=== PATIENT | male | born 1960 | race Two or more races ===

== ENCOUNTER 2020-02-10 09:33 | Inpatient (IN) | payer OTHER ==
[~2020-02-10] VITALS: Ht 172.7 cm; Wt 68.1 kg
[2020-02-10 10:07] LABS: Eosinophils # (auto) 0.1 10 ^3/uL (0-0.8); Lymphocytes # (auto) 2.7 10 ^3/uL (0.4-5.4); Monocytes # (auto) 0.3 10 ^3/uL (0-1.3); Neutrophils # (auto) 9.2 10 ^3/uL (1.6-8.6); Red Cell Distribution Width 13.5 % (11.8-14.3)
[2020-02-10 10:09] LABS: Basophils # (auto) 0 10 ^3/uL (0-0.2); Basophils % (auto) 0.3 % (0.0-2.0); Mean Corpuscular Hemoglobin 33.4 pg (28.0-32.0); Mean Corpuscular Hgb Conc. 35.2 g/dL (32.0-36.0); Mean Corpuscular Volume 94.9 fL (80.0-100.0); Monocytes % (auto) 2.3 % (0.0-12.0); Neutrophils % (auto) 74.4 % (37.0-80.0); Nucleated Red Blood Cells % 0.1 %; Platelet Count (auto) 323 10^3/uL (140-450); White Blood Cell 12.4 10^3/uL (4.4-10.8)
[2020-02-10] MEDS ORDERED: SODIUM CHLORIDE 0.9% 500 ML IVB ONE (10:15)
[2020-02-10] MEDS ORDERED: SODIUM CHLORIDE 0.9% 1,000 ML IV ONE ×2 (10:15→17:15)
[2020-02-10 10:33] LABS: Albumin 3.1 g/dL (3.4-5.0); Calcium 8.3 mg/dL (8.5-10.1); Potassium 3.3 mmol/L (3.5-5.1)
[2020-02-10 10:38] LABS: BUN/Creatinine Ratio 9.4; Bilirubin, Total 0.6 mg/dL (0.2-1.0); Total Protein 6.4 g/dL (6.4-8.2)
[2020-02-10] MEDS ORDERED: POTASSIUM EFFERVESENT TAB 25 MEQ PO ONE (12:15)
[2020-02-10 17:34] LABS: Alcohol, Urine < 3.0 mg/dL (0-10); Amphetamine Screen, Urine NEGATIVE (NEGATIVE); Barbiturate Scree,Urine NEGATIVE (NEGATIVE); Benzodiazephine Screen, Urine NEGATIVE (NEGATIVE); Cannabinoid Screen, Urine NEGATIVE (NEGATIVE); Cocaine Screen, Urine NEGATIVE (NEGATIVE); Opiate Scree,Urine NEGATIVE (NEGATIVE); Phencyclidine Screen, Urine NEGATIVE (NEGATIVE)
[2020-02-10] MEDS ORDERED: NITROGLYCERIN 0.4 MG SL TAB SL PRN (20:30)
[2020-02-10] MEDS ORDERED: MORPHINE SULF INJ 2 MG/ML SYRINGE 1ML IV PRN (20:30)
[2020-02-10] MEDS ORDERED: ASPirin 81 mg TAB PO ONE (20:30)
[2020-02-10] MEDS ORDERED: NICOTINE 21MG/24 HR TOPICAL PATCH TD ONE (20:30)
[2020-02-10] MEDS: FOLIC ACID 1 MG, MULTIPLE VITAMIN 10 ML, MAGNESIUM SULF SDV 50% 8 MEQ, THIAMINE INJ 100... INJ SCH ×5 (20:30)
[2020-02-10 20:54] LABS: Cholesterol 176 mg/dL (< 200)
[2020-02-10 20:57] LABS: HDL Cholesterol 22 mg/dL (40-59); Triglycerides 530 mg/dL (< 150)
[2020-02-10 23:03] VITALS: BP 129/73
--- NOTE | 2020-02-10 23:05 | NUR ---
pt arrived via wheelchair. pt is on room air. pt transferred self to hospital bed in room 233.
[2020-02-11 05:00] VITALS: BP 112/70
--- NOTE | 2020-02-11 05:05 | NUR ---
report given to jose stallworth.
--- NOTE | 2020-02-11 05:13 | NUR ---
pt transferred to [place], room 219, via wheelchair
--- NOTE | 2020-02-11 05:14 | NUR ---
Assumed care of patient after report received from LEILANI Christie. Patient has no complains of pain, no signs nor symptoms of respiratory distress. Will monitor patient Q1 hour and prn.
--- NOTE | 2020-02-11 07:30 | NUR ---
No significant change in patient's status. Patient has no complains of pain, no signs of respiratory distress. Report given to LEILANI Dale.
[2020-02-11 08:03] LABS: Basophils # (auto) 0 10 ^3/uL (0-0.2); Basophils % (auto) 0.4 % (0.0-2.0); Eosinophils # (auto) 0.3 10 ^3/uL (0-0.8); Eosinophils % (auto) 3.7 % (0.0-7.0); Hematocrit 42.2 % (41.0-53.0); Hemoglobin 14.9 g/dL (13.5-17.5); Lymphocytes # (auto) 0.6 10 ^3/uL (0.4-5.4); Lymphocytes % (auto) 8.4 % (10.0-50.0); Mean Corpuscular Hemoglobin 33.4 pg (28.0-32.0); Mean Corpuscular Hgb Conc. 35.3 g/dL (32.0-36.0); Mean Corpuscular Volume 94.6 fL (80.0-100.0); Monocytes # (auto) 0.5 10 ^3/uL (0-1.3); Monocytes % (auto) 6.6 % (0.0-12.0); Neutrophils # (auto) 5.5 10 ^3/uL (1.6-8.6); Neutrophils % (auto) 80.9 % (37.0-80.0); Nucleated Red Blood Cells % 0.1 %; Platelet Count (auto) 203 10^3/uL (140-450); Red Blood Cells 4.46 10^6/uL (4.5-5.90); Red Cell Distribution Width 13.3 % (11.8-14.3); White Blood Cell 6.8 10^3/uL (4.4-10.8)
[2020-02-11 08:36] LABS: Cholesterol 122 mg/dL (< 200); HDL Cholesterol 23 mg/dL (40-59); LDL Cholesterol 62 mg/dL (< 100); Triglycerides 399 mg/dL (< 150)
[2020-02-11 09:00] VITALS: BP 138/85
[2020-02-11] MEDS ORDERED: ASPirin 81 mg TAB PO SCH (10:00)
[2020-02-11] MEDS ORDERED: NICOTINE 21MG/24 HR TOPICAL PATCH TD SCH (10:00)
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
[2020-02-11 11:49] LABS: Calcium 8.5 mg/dL (8.5-10.1); Potassium 3.9 mmol/L (3.5-5.1)
[2020-02-11 11:51] LABS: BUN/Creatinine Ratio 13.4
[2020-02-11 12:23] LABS: Urine WBC None Seen /hpf (0 - 3)
[2020-02-11 12:36] LABS: Urine Bacteria NONE SEEN /hpf (None Seen); Urine Blood Negative /uL (Negative); Urine Specific Gravity 1.011 (1.001-1.035)
[2020-02-11] MEDS: FOLIC ACID 1 MG, MULTIPLE VITAMIN 10 ML, MAGNESIUM SULF SDV 50% 8 MEQ, THIAMINE INJ 100... INJ SCH ×5 (12:58)
[2020-02-11 13:00] VITALS: BP 139/72
[2020-02-11 17:08] VITALS: BP 138/82
--- NOTE | 2020-02-11 19:20 | NUR ---
Opening Shift Note Received report from Chito DUKE. Assumed care of patient, awake and alert. No S/S of distress/SOB or pain. Instructed on POC and to call for assist PRN, will continue to monitor for changes Q1hr and PRN.
[2020-02-11 21:00] VITALS: BP 157/88
[2020-02-12 05:00] VITALS: BP 139/80
[2020-02-12 09:00] VITALS: BP 149/85
[2020-02-12] MEDS ORDERED: ASPirin 81 mg TAB PO SCH (10:00)
[2020-02-12] MEDS ORDERED: NICOTINE 21MG/24 HR TOPICAL PATCH TD SCH (10:00)
--- NOTE | 2020-02-12 11:30 | NUR ---
DR. MORENO WAS IN TO SEE PATIENT. WAITING FOR DR. SANDERSON'S CLEARANCE TO DISCHARGE PATIENT HOME.
[2020-02-12] MEDS: FOLIC ACID 1 MG, MULTIPLE VITAMIN 10 ML, MAGNESIUM SULF SDV 50% 8 MEQ, THIAMINE INJ 100... INJ SCH ×5 (12:14)
[2020-02-12 13:00] VITALS: BP 156/77
--- NOTE | 2020-02-12 13:00 | NUR ---
CONTACTED DR. SANDERSON BY PHONE TO ASK MD IF PATIENT IS CLEARED TO BE DISCHARGE TODAY AND MD STATED THAT IT IS OKAY FOR HIM TO BE DISCHARGE AND TO FOLLOW UP WITH STAFF DEVELOPMENT EDUCATOR IN [address] MORENO NOTIFIED OF SAME.
--- NOTE | 2020-02-12 14:18 | NUR ---
DR. MORENO WAS IN TO SEE ND LEFT DISCHARGE ORDER.
--- NOTE | 2020-02-12 15:28 | NUR ---
Nutrition Assessment Notes Please refer to link for full assessment notes. Est Energy needs: 2757-9322 kcals (25-30 kcal/kgBW) Est Protein needs: 54-68 gms/day (0.8-1.0 gm/kgBW) Will continue to monitor and reassess prn. Addendum: 02/12/20 at [address] Amended: Links added.
[2020-02-12] MEDS ORDERED: LEV50T PO (16:09)
[2020-02-12 17:00] VITALS: BP 140/89
[2020-02-12 17:32] VITALS: BP 140/89
--- NOTE | 2020-02-12 19:15 | NUR ---
Discharge instructions given as ordered. Encourage to follow up with PMD as instructed. All questions and concerns addressed. Patient verbalized understanding. Medication reconciliation form completed and copy given to patient. Prescribed medications filled by [facility] and was given to patient. IV removed with catheter intact, pressure dressing applied. Telemetry unit returned to ICU. Patient taken to taxi via wheelchair with all personal belongings, accompanied by staff. No distress noted at time of departure.
[2020-02-13] MEDS ORDERED: LEVOTHYROXINE SODIUM 112 MCG TAB PO SCH (07:00)
[2020-02-13] MEDS ORDERED: MAGNESIUM OXIDE 400 MG TAB PO SCH (10:00)
== END 2020-02-12 19:15 | disposition home or self-care (01) | DRG 201 ==
LOC: ER 09:33 → EDBD 09:33 → TELE 09:34 → TELE-EAST 23:05 → TELE-CENTR 02-11 05:10
PROVIDERS: ADMIT Nurse Practitioner Acute Care; ATTEND Internal Medicine Nephrology
DX: I47.1 Supraventricular tachycardia (principal); E11.65 Type 2 diabetes mellitus with hyperglycemia; E87.6 Hypokalemia; E66.9 Obesity, unspecified; Z20.828 Contact with and (suspected) exposure to other viral communicable diseases; E86.0 Dehydration; E78.5 Hyperlipidemia, unspecified; I95.9 Hypotension, unspecified; E03.9 Hypothyroidism, unspecified; R55 Syncope and collapse; M50.30 Other cervical disc degeneration, unspecified cervical region; E44.1 Mild protein-calorie malnutrition; Z68.22 Body mass index [BMI] 22.0-22.9, adult; M47.812 Spondylosis without myelopathy or radiculopathy, cervical region; G93.41 Metabolic encephalopathy; F17.210 Nicotine dependence, cigarettes, uncomplicated; V89.2XXA Person injured in unspecified motor-vehicle accident, traffic, initial encounter; Y92.410 Unspecified street and highway as the place of occurrence of the external cause
CPT/HCPCS: 36415; 70450; 71045; 72125; 80048; 80053; 80061; 80307; 80320; 81001; 83036; 83735; 84439; 84443; 84484; 85025; 87426; 93005; 93306; 96360; 96361; G0378